=== PATIENT | female | born 1980 | race Caucasian/White ===

== ENCOUNTER 2020-02-07 13:26 | Inpatient (IN) ==
[2020-02-07] MEDS ORDERED: ONDANSETRON INJ 2 MG/ML 2 ML VIAL IV STA (13:49)
[2020-02-07] MEDS ORDERED: HYDROmorphone INJ 0.5 MG/0.5 ML SYR IV STA (13:49)
[2020-02-07] MEDS ORDERED: SODIUM CHLORIDE 0.9% 1000ML 1,000 ML IV ONE (13:49)
--- NOTE | 2020-02-07 13:52 | Emergency Department Note ---
History of Present Illness General Chief complaint: Abdominal Pain Stated complaint: SEVERE ABDOMINAL PAIN Time Seen by Provider: 02/07/20 13:44 Source: patient History of Present Illness Provider complaint: Right-sided abdominal pain Onset (ago): hour(s) Location: abdomen and right Radiation: back Severity: severe Pain Consistency: + constant Quality: + sharp Relieved By: + none Associated symptoms: + nausea/vomiting (Nausea no vomiting); no chest pain, no cough, no fever/chills and no shortness of breath This is a 39-year-old female presents with right-sided abdominal pain starting at 5 AM this morning. It woke her up from sleep. It is sharp. It radiates to the back. No alleviating factors. She is nauseous but not vomiting. She denies any fever, chest pain, shortness of breath, diarrhea, black or bloody stools, urinary symptoms, hematuria or abnormal vaginal discharge or bleeding. She denies any chance of . She has been 4 times in the past. She did eat chicken wings last night. She denies any cough or cold symptoms or known exposure to COVID-19. She does have a prior history of kidney stones years ago but states that that pain was much worse. Home Medications Home Medications Medication Instructions Recorded Confirmed Type ascorbic acid (vitamin C) [Vitamin 1,000 cap PO DAILY 02/07/20 02/07/20 History C] elderberry fruit [Elderberry] 200 mg PO DAILY 02/07/20 02/07/20 History lactobacillus combination no.4 3,000 mmu cells PO DAILY 02/07/20 02/07/20 History [Probiotic] multivitamin 1 cap PO DAILY 02/07/20 02/07/20 History Allergies Allergy/AdvReac Type Severity Reaction Status Date / Time No Known Allergies Allergy Verified 02/07/20 15:47 Past Med/Surg History Medical History (Updated 02/07/20 @ 16:47 by Gregory Rausch MD) Cecal volvulus No significant past medical history Social History Smoking Status: Never smoker marital status: Current Living Situation: Family Feels Safe at Home: Yes Review of Systems See HPI for pertinent positives & negatives. and A total of 10 systems reviewed and were otherwise negative Physical Exam Vital Signs Vital Signs - 24 hr 02/07/20 13:39 02/07/20 13:44 02/07/20 13:48 Temperature 37.3 C Temperature Source Oral Pulse Rate 73 68 78 Pulse Rate [Left Finger] Pulse Rate from SpO2 Sensor Respiratory Rate 16 16 32 H Blood Pressure 128/90 115/94 Blood Pressure [Left Arm] Blood Pressure Mean 96 101 Blood Pressure Mean [Left Arm] Pulse Oximetry 99 Oxygen Delivery Method Room Air Sepsis Recent Fever Within 48 Hours No Sepsis New/Unexplained Change in Mental Status No Sepsis Action Taken by Nursing No Action Required 02/07/20 13:50 02/07/20 14:00 02/07/20 14:03 Temperature Temperature Source Pulse Rate 66 57 L 57 L Pulse Rate [Left Finger] Pulse Rate from SpO2 Sensor 67 58 L 56 L Respiratory Rate 18 20 20 Blood Pressure 125/80 Blood Pressure [Left Arm] Blood Pressure Mean 91 Blood Pressure Mean [Left Arm] Pulse Oximetry 100 100 100 Oxygen Delivery Method Sepsis Recent Fever Within 48 Hours Sepsis New/Unexplained Change in Mental Status Sepsis Action Taken by Nursing 02/07/20 14:04 02/07/20 14:10 02/07/20 14:21 Temperature Temperature Source Pulse Rate 63 Pulse Rate [Left Finger] 56 L Pulse Rate from SpO2 Sensor 63 57 L Respiratory Rate 20 19 Blood Pressure Blood Pressure [Left Arm] 125/80 Blood Pressure Mean Blood Pressure Mean [Left Arm] 95 Pulse Oximetry 96 99 99 Oxygen Delivery Method Sepsis Recent Fever Within 48 Hours Sepsis New/Unexplained Change in Mental Status Sepsis Action Taken by Nursing 02/07/20 14:30 02/07/20 14:47 02/07/20 14:50 Temperature Temperature Source Pulse Rate 78 55 L Pulse Rate [Left Finger] Pulse Rate from SpO2 Sensor 58 L 78 55 L Respiratory Rate 19 14 Blood Pressure 114/72 Blood Pressure [Left Arm] Blood Pressure Mean 79 Blood Pressure Mean [Left Arm] Pulse Oximetry 98 100 99 Oxygen Delivery Method Sepsis Recent Fever Within 48 Hours Sepsis New/Unexplained Change in Mental Status Sepsis Action Taken by Nursing 02/07/20 15:00 02/07/20 15:10 02/07/20 15:20 Temperature Temperature Source Pulse Rate 55 L 55 L 65 Pulse Rate [Left Finger] Pulse Rate from SpO2 Sensor 55 L 55 L 66 Respiratory Rate 10 L 10 L 13 Blood Pressure 105/70 Blood Pressure [Left Arm] Blood Pressure Mean 81 Blood Pressure Mean [Left Arm] Pulse Oximetry 98 98 100 Oxygen Delivery Method Room Air Sepsis Recent Fever Within 48 Hours Sepsis New/Unexplained Change in Mental Status Sepsis Action Taken by Nursing 02/07/20 15:30 02/07/20 15:40 02/07/20 15:50 Temperature Temperature Source Pulse Rate 75 69 63 Pulse Rate [Left Finger] Pulse Rate from SpO2 Sensor 75 71 61 Respiratory Rate 16 17 12 Blood Pressure 118/71 Blood Pressure [Left Arm] Blood Pressure Mean 80 Blood Pressure Mean [Left Arm] Pulse Oximetry 99 100 99 Oxygen Delivery Method Room Air Room Air Room Air Sepsis Recent Fever Within 48 Hours Sepsis New/Unexplained Change in Mental Status Sepsis Action Taken by Nursing 02/07/20 16:00 02/07/20 16:10 02/07/20 16:20 Temperature Temperature Source Pulse Rate 64 69 68 Pulse Rate [Left Finger] Pulse Rate from SpO2 Sensor 64 68 67 Respiratory Rate 14 13 11 L Blood Pressure 121/77 Blood Pressure [Left Arm] Blood Pressure Mean 80 Blood Pressure Mean [Left Arm] Pulse Oximetry 99 99 98 Oxygen Delivery Method Room Air Room Air Room Air Sepsis Recent Fever Within 48 Hours Sepsis New/Unexplained Change in Mental Status Sepsis Action Taken by Nursing 02/07/20 16:30 Temperature Temperature Source Pulse Rate 62 Pulse Rate [Left Finger] Pulse Rate from SpO2 Sensor 62 Respiratory Rate 15 Blood Pressure 99/65 L Blood Pressure [Left Arm] Blood Pressure Mean 73 Blood Pressure Mean [Left Arm] Pulse Oximetry 98 Oxygen Delivery Method Room Air Sepsis Recent Fever Within 48 Hours Sepsis New/Unexplained Change in Mental Status Sepsis Action Taken by Nursing Constitutional: Vital signs reviewed. Eyes: Pupils are equal round reactive to light. Conjunctiva are noninjected. ENT: Pharynx is clear without erythema or exudate. Mucous membranes are moist. Neck supple without meningeal signs. Respiratory: Clear to auscultation bilaterally. Breath sounds are equal bilaterally. Cardiovascular: Regular rate and rhythm. No rubs or gallops. GI: Soft, nondistended with diffuse tenderness localizing in the right upper quadrant. No Jackson sign. Bowel sounds are present. Small umbilical hernia. Musculoskeletal: No peripheral edema. No lower extremity tenderness. Integumentary: No cyanosis. or jaundice. Neurological: The patient is awake and alert. No focal deficits. Psychiatric: Normal affect. Not anxious appearing. Course Administered Medications Discontinued Medications Hydromorphone HCl (Hydromorphone Inj 0.5 Mg/0.5 Ml Syr) 0.5 mg IV NOW STA Stop: 02/07/20 13:50 Last Admin: 02/07/20 13:56 Dose: 0.5 mg Documented by: [id number] Sodium Chloride (Nss 1000ml) 1,000 mls @ 999 mls/hr IV .Q1H1M ONE Stop: 02/07/20 14:49 Last Infusion: 02/07/20 14:36 Dose: 0 mls/hr Documented by: [id number] Admin: 02/07/20 13:55 Dose: 999 mls/hr Documented by: [id number] Ioversol (Ioversol 100ml) 94 ml IV ONCE ONE Stop: 02/07/20 14:42 Last Admin: 02/07/20 14:41 Dose: 94 ml Documented by: [id number] Ondansetron HCl (Ondansetron Inj 2 Mg/Ml 2 Ml Vial) 4 mg IV NOW STA Stop: 02/07/20 13:50 Last Admin: 02/07/20 13:56 Dose: 4 mg Documented by: [id number] Medical Decision Making Differential Diagnosis Kidney stone, hydronephrosis, acute appendicitis, abscess, ovarian cyst, ectopic , cholecystitis Medical Records Attestation: I reviewed the patient's medical records. I did see the patient in November for neck pain. She does have cervical disc disease. Home Medications Current Medication List: was personally reviewed by me Laboratory Data Attestation: I reviewed the patient's lab results. Result diagrams: 02/07/20 12:45 02/07/20 12:45 Lab Results 02/07/20 02/07/20 02/07/20 Range/Units 12:45 12:45 12:45 WBC 9.93 (4.8-10.8) K/uL RBC 4.69 (4.2-5.4) M/uL Hgb 13.8 (12.0-16.0) g/dL Hct 40.3 (37-47) % MCV 85.9 (80-100) fL MCH 29.4 (25-34) pg MCHC 34.2 (32-36) g/dL RDW Std Deviation 40.1 (36.4-46.3) fL RDW Coeff of Stuart 12.8 (11.5-14.5) % Plt Count 221 (130-400) K/uL MPV 10.0 (7.4-10.4) fL Immature Gran % (Auto) 0.1 % Neut % (Auto) 58.4 % Lymph % (Auto) 35.3 % [place] % (Auto) 5.1 % Eos % (Auto) 0.9 % Baso % (Auto) 0.2 % Neut # (Auto) 5.79 (1.4-6.5) K/uL Lymph # (Auto) 3.51 H (1.2-3.4) K/uL [place] # (Auto) 0.51 (0.11-0.59) K/uL Eos # (Auto) 0.09 (0-0.5) K/uL Baso # (Auto) 0.02 (0-0.2) K/uL Immature Gran # (Auto) 0.01 (0.00-0.02) K/uL Sodium 137 (136-145) mmol/L Potassium 4.0 (3.5-5.1) mmol/L Chloride 106 (98-107) mmol/L Carbon Dioxide 26 (21-32) mmol/L Anion Gap 6.0 (3-11) BUN 14 (7-18) mg/dl Creatinine 0.86 (0.6-1.2) mg/dl Est Cr Clr Drug Dosing 95.0 ml/min Est GFR ( Amer) 98.6 Est GFR (Non-Af Amer) 85.1 BUN/Creatinine Ratio 16.1 (10-20) Glucose 97 (70-99) mg/dl Calcium 9.7 (8.5-10.1) mg/dl Total Bilirubin 0.5 (0.2-1) mg/dl AST 13 L (15-37) U/L ALT 19 (12-78) U/L Alkaline Phosphatase 36 L (45-117) U/L Total Protein 7.9 (6.4-8.2) gm/dl Albumin 4.2 (3.4-5.0) gm/dl Globulin 3.7 (2.5-4.0) gm/dl Albumin/Globulin Ratio 1.1 (0.9-2) Lipase 103 (73-393) U/L HCG, Qual Negative (Negative) Urine Color Urine Appearance (Clear) Urine pH (4.5-7.5) Ur Specific Gleason (1.000-1.030) Urine Protein (Negative) Urine Glucose (UA) (Negative) Urine Ketones (Negative) Urine Blood (Negative) Urine Nitrite (Negative) Urine Bilirubin (Negative) Urine Urobilinogen (Negative) Ur Leukocyte Esterase (Negative) Urine WBC (Auto) (0-5) /hpf Urine RBC (Auto) (0-4) /hpf U Hyaline Cast (Auto) (0-5) /lpf U Epithel Cells (Auto) (0-5) /lpf Urine Bacteria (Auto) (Negative) POC Ur Test (NEG) COVID-19 Eval Order SARS-CoV-2, RNA, NAAT (NEGATIVE) 02/07/20 02/07/20 02/07/20 Range/Units 14:20 14:20 15:40 WBC (4.8-10.8) K/uL RBC (4.2-5.4) M/uL Hgb (12.0-16.0) g/dL Hct (37-47) % MCV (80-100) fL MCH (25-34) pg MCHC (32-36) g/dL RDW Std Deviation (36.4-46.3) fL RDW Coeff of Stuart (11.5-14.5) % Plt Count (130-400) K/uL MPV (7.4-10.4) fL Immature Gran % (Auto) % Neut % (Auto) % Lymph % (Auto) % [place] % (Auto) % Eos % (Auto) % Baso % (Auto) % Neut # (Auto) (1.4-6.5) K/uL Lymph # (Auto) (1.2-3.4) K/uL [place] # (Auto) (0.11-0.59) K/uL Eos # (Auto) (0-0.5) K/uL Baso # (Auto) (0-0.2) K/uL Immature Gran # (Auto) (0.00-0.02) K/uL Sodium (136-145) mmol/L Potassium (3.5-5.1) mmol/L Chloride (98-107) mmol/L Carbon Dioxide (21-32) mmol/L Anion Gap (3-11) BUN (7-18) mg/dl Creatinine (0.6-1.2) mg/dl Est Cr Clr Drug Dosing ml/min Est GFR ( Amer) Est GFR (Non-Af Amer) BUN/Creatinine Ratio (10-20) Glucose (70-99) mg/dl Calcium (8.5-10.1) mg/dl Total Bilirubin (0.2-1) mg/dl AST (15-37) U/L ALT (12-78) U/L Alkaline Phosphatase (45-117) U/L Total Protein (6.4-8.2) gm/dl Albumin (3.4-5.0) gm/dl Globulin (2.5-4.0) gm/dl Albumin/Globulin Ratio (0.9-2) Lipase (73-393) U/L HCG, Qual (Negative) Urine Color Yellow Urine Appearance Clear (Clear) Urine pH 5.0 (4.5-7.5) Ur Specific Gleason 1.017 (1.000-1.030) Urine Protein Negative (Negative) Urine Glucose (UA) Negative (Negative) Urine Ketones Negative (Negative) Urine Blood Trace H (Negative) Urine Nitrite Negative (Negative) Urine Bilirubin Negative (Negative) Urine Urobilinogen Negative (Negative) Ur Leukocyte Esterase Trace H (Negative) Urine WBC (Auto) 1-5 (0-5) /hpf Urine RBC (Auto) 0-4 (0-4) /hpf U Hyaline Cast (Auto) 0 (0-5) /lpf U Epithel Cells (Auto) 10-20 H (0-5) /lpf Urine Bacteria (Auto) Negative (Negative) POC Ur Test NEG (NEG) COVID-19 Eval Order Covid19 IDNow atMNDC SARS-CoV-2, RNA, NAAT (NEGATIVE) 02/07/20 Range/Units 15:40 WBC (4.8-10.8) K/uL RBC (4.2-5.4) M/uL Hgb (12.0-16.0) g/dL Hct (37-47) % MCV (80-100) fL MCH (25-34) pg MCHC (32-36) g/dL RDW Std Deviation (36.4-46.3) fL RDW Coeff of Stuart (11.5-14.5) % Plt Count (130-400) K/uL MPV (7.4-10.4) fL Immature Gran % (Auto) % Neut % (Auto) % Lymph % (Auto) % [place] % (Auto) % Eos % (Auto) % Baso % (Auto) % Neut # (Auto) (1.4-6.5) K/uL Lymph # (Auto) (1.2-3.4) K/uL [place] # (Auto) (0.11-0.59) K/uL Eos # (Auto) (0-0.5) K/uL Baso # (Auto) (0-0.2) K/uL Immature Gran # (Auto) (0.00-0.02) K/uL Sodium (136-145) mmol/L Potassium (3.5-5.1) mmol/L Chloride (98-107) mmol/L Carbon Dioxide (21-32) mmol/L Anion Gap (3-11) BUN (7-18) mg/dl Creatinine (0.6-1.2) mg/dl Est Cr Clr Drug Dosing ml/min Est GFR ( Amer) Est GFR (Non-Af Amer) BUN/Creatinine Ratio (10-20) Glucose (70-99) mg/dl Calcium (8.5-10.1) mg/dl Total Bilirubin (0.2-1) mg/dl AST (15-37) U/L ALT (12-78) U/L Alkaline Phosphatase (45-117) U/L Total Protein (6.4-8.2) gm/dl Albumin (3.4-5.0) gm/dl Globulin (2.5-4.0) gm/dl Albumin/Globulin Ratio (0.9-2) Lipase (73-393) U/L HCG, Qual (Negative) Urine Color Urine Appearance (Clear) Urine pH (4.5-7.5) Ur Specific Gleason (1.000-1.030) Urine Protein (Negative) Urine Glucose (UA) (Negative) Urine Ketones (Negative) Urine Blood (Negative) Urine Nitrite (Negative) Urine Bilirubin (Negative) Urine Urobilinogen (Negative) Ur Leukocyte Esterase (Negative) Urine WBC (Auto) (0-5) /hpf Urine RBC (Auto) (0-4) /hpf U Hyaline Cast (Auto) (0-5) /lpf U Epithel Cells (Auto) (0-5) /lpf Urine Bacteria (Auto) (Negative) POC Ur Test (NEG) COVID-19 Eval Order SARS-CoV-2, RNA, NAAT NEGATIVE (NEGATIVE) Imaging Data Radiologist's Impression: ABDOMEN AND PELVIS CT WITH IV CONTRAST CT DOSE: 302.04 mGy.cm HISTORY: Right lower quadrant pain. TECHNIQUE: Multiaxial CT images of the abdomen and pelvis were performed following the use of intravenous contrast. A dose lowering technique was utilized adhering to the principles of ALARA. COMPARISON STUDY: None. FINDINGS: The lung bases are clear. No pneumoperitoneum. No pneumatosis. No fractures within the visualized osseous structures. Bilateral breast augmentation is partially visualized. Tiny fat-containing umbilical hernia. There is a 1.4 cm hypodense lesion within the left hepatic lobe. This is technically indeterminate but favors a hemangioma. Mild periportal edema which could be due to overhydration. The gallbladder, spleen, pancreas, and adrenal glands unremarkable. There are punctate bilateral renal calculi. No ureteral stones. No hydronephrosis. The bladder is not well-distended and therefore not well evaluated. The uterus and ovaries are within normal limits. Thick-walled cyst within the left ovary measuring 1.5 cm. This favors a corpus luteum. Trace pelvic free fluid. This is likely physiologic. There are no dilated loops of small bowel. The cecum is located within the left upper quadrant. The cecum is distended and there is tight narrowing of the proximal ascending colon as it traverses the midline of the right lower quadrant. Therefore, this raises the possibility of a developing cecal volvulus. Clinical correlation recommended as well as surgical consultation. The appendix is identified with certainty. No retroperitoneal lymphadenopathy. Normal caliber abdominal aorta. The main portal vein is patent. IMPRESSION: 1. The proximal ascending colon is severely narrowed and crosses the midline with the cecum located within the left upper quadrant. The cecum is distended and filled with fluid and gas. Therefore, these findings raise the possibility of a developing cecal volvulus. Clinical correlation and surgical consultation recommended for further evaluation. 2. The appendix is not identified with certainty. 3. Bilateral nephrolithiasis. No ureteral stones. No hydronephrosis. ACT 112: Negative or not required by law. MDM Narrative I did evaluate the patient as noted above. The patient is presenting with severe acute onset of right sided abdominal pain rating to her back. She does have a prior history of kidney stones but stated that that felt much worse. On examination, however, she is tender diffusely with localization in the right upper quadrant. IV access was established. I did place an order for continuous cardiac monitoring. The monitor showed normal sinus rhythm at a rate of 60 bpm. I did treat her with Dilaudid 0.5 mg IV and Zofran 4 mg IV. She was given a liter of normal saline IV. I did reevaluate the patient. She is feeling better but still in pain. I did reexamine her abdomen and now she is localizing in the right lower quadrant over McBurney point. Originally I discussed ordering an ultrasound but I told her instead we would do a CAT scan to rule out appendicitis. I did order a urine analysis. She has hematuria but no signs of infection. I did order and review the patient's blood work as noted in the electronic medical record. Her white blood cell count is not elevated. LFTs, electrolytes and lipase are unremarkable. Serum test is negative. I did order a CT of the abdomen and pelvis. I did review the images myself as well as the radiology report as described above. 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 On reevaluation patient is still having pain and tenderness but she does feel better. She does states it comes in waves. I did discuss the case immediately with Dr. Infante of surgery. He requested that she be admitted to medicine and GI be consulted for endoscopic decompression. I did speak to Dr. Whit Sagastume of gastroenterology regarding this. He stated that endoscopy was not indicated for cecal volvulus. I did call Dr. Humphries back who came in to see the patient and took her to the OR for surgical repair. I did order a preoperative COVID-19 test. Impression & Plan Cecal volvulus Discharge Plan Visit Data Chief Complaint: Abdominal Pain Stated Complaint: SEVERE ABDOMINAL PAIN ED Provider: Gregory Rausch Discharge Problem: Cecal volvulus Patient Disposition: Being Evaluated by Surgeon Forms Stand Alone Forms: My [facility] [employer] Prescriptions Prescriptions: No Action multivitamin Capsule 1 cap PO DAILY RF: 0 Vitamin C 1,000 mg Capsule, Extended Release 1,000 cap PO DAILY RF: 0 Elderberry 200 mg Capsule 200 mg PO DAILY RF: 0 Probiotic 3 billion cell Capsule 3,000 mmu cells PO DAILY RF: 0 Referrals Referrals: Vasile Gomez MD [Primary Care Provider] -
[2020-02-07 13:57] LABS: Basophils # (auto) 0.02 K/uL (0-0.2); Basophils % (auto) 0.2 %; Eosinophils # (auto) 0.09 K/uL (0-0.5); Eosinophils % (auto) 0.9 %; Hematocrit (blood only) 40.3 % (37-47); Hemoglobin 13.8 g/dL (12.0-16.0); Immature Granulocytes # (auto) 0.01 K/uL (0.00-0.02); Immature Granulocytes % (auto) 0.1 %; Lymphocytes # (auto) 3.51 K/uL (1.2-3.4); Lymphocytes % (auto) 35.3 %; Mean Corpuscular Hemoglobin 29.4 pg (25-34); Mean Corpuscular Hgb Conc 34.2 g/dL (32-36); Mean Corpuscular Volume 85.9 fL (80-100); Monocytes # (auto) 0.51 K/uL (0.11-0.59); Monocytes % (auto) 5.1 %; Neutrophils # (auto) 5.79 K/uL (1.4-6.5); Neutrophils % (auto) 58.4 %; Platelet Count 221 K/uL (130-400); RDW Coefficient of Variation 12.8 % (11.5-14.5); RDW Standard Deviation 40.1 fL (36.4-46.3); Red Blood Count 4.69 M/uL (4.2-5.4); White Blood Count 9.93 K/uL (4.8-10.8)
[2020-02-07 14:14] LABS: Albumin Level 4.2 gm/dl (3.4-5.0); BUN Creatinine Ratio 16.1 (10-20); Calcium 9.7 mg/dl (8.5-10.1); Est GFR (African American) 98.6; Est GFR (Non-African American) 85.1
[2020-02-07 14:16] LABS: Albumin Globulin Ratio 1.1 (0.9-2); Bilirubin,Total 0.5 mg/dl (0.2-1); Globulin 3.7 gm/dl (2.5-4.0); Total Protein 7.9 gm/dl (6.4-8.2)
[2020-02-07 14:19] LABS: Pregnancy Test, Serum Negative (Negative)
[2020-02-07 14:35] LABS: Appearance Urine Clear (Clear); Bacteria Urine Automated Negative (Negative); Bilirubin Urine Negative (Negative); Blood Urine Trace (Negative); Cast Urine Automated 0 /lpf (0-5); Color Urine Yellow; Glucose Urine UA Negative (Negative); Ketones Urine Negative (Negative); Leukocyte Esterase Urine Trace (Negative); Nitrite Urine Negative (Negative); Protein Urine Negative (Negative); RBC Urine Automated 0-4 /hpf (0-4); Specific Gravity Urine 1.017 (1.000-1.030); Urobilinogen Urine Negative (Negative)
[2020-02-07] MEDS ORDERED: IOVERSOL 100ml IV ONE (14:41)
--- NOTE | 2020-02-07 15:04 | CT Scan Report ---
ABDOMEN AND PELVIS CT WITH IV CONTRAST CT DOSE: 302.04 mGy.cm HISTORY: Right lower quadrant pain. TECHNIQUE: Multiaxial CT images of the abdomen and pelvis were performed following the use of intrave nous contrast. A dose lowering technique was utilized adhering to the principles of ALARA. COMPARISON STUDY: None. FINDINGS: The lung bases are clear. No pneumoperitoneum. No pneumatosis. No fractures within the visu alized osseous structures. Bilateral breast augmentation is partially visualized. Tiny fat-containing umbilical hernia. There is a 1.4 cm hypodense lesion within the left hepatic lobe. This is technical ly indeterminate but favors a hemangioma. Mild periportal edema which could be due to overhydration. The gallbladder, spleen, pancreas, and adrenal glands unremarkable. There are punctate bilateral greg l calculi. No ureteral stones. No hydronephrosis. The bladder is not well-distended and therefore not well evaluated. The uterus and ovaries are within normal limits. Thick-walled cyst within the left o vary measuring 1.5 cm. This favors a corpus luteum. Trace pelvic free fluid. This is likely physiolog ic. There are no dilated loops of small bowel. The cecum is located within the left upper quadrant. T he cecum is distended and there is tight narrowing of the proximal ascending colon as it traverses th e midline of the right lower quadrant. Therefore, this raises the possibility of a developing cecal v olvulus. Clinical correlation recommended as well as surgical consultation. The appendix is identifie d with certainty. No retroperitoneal lymphadenopathy. Normal caliber abdominal aorta. The main portal vein is patent. IMPRESSION: 1. The proximal ascending colon is severely narrowed and crosses the midline with the cecum located w ithin the left upper quadrant. The cecum is distended and filled with fluid and gas. Therefore, these findings raise the possibility of a developing cecal volvulus. Clinical correlation and surgical con sultation recommended for further evaluation. 2. The appendix is not identified with certainty. 3. Bilateral nephrolithiasis. No ureteral stones. No hydronephrosis. ACT 112: Negative or not required by law. Electronically signed by: Kevin Day M.D. 02/07/2020 3:03 PM
--- NOTE | 2020-02-07 16:15 | History & Physical Report ---
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 It woke her up from sleep. It is sharp. It radiates to the back. No alleviating factors. She is nauseous but not vomiting. She denies any fever, chest pain, shortness of breath, diarrhea, black or bloody stools, urinary symptoms, hematuria or abnormal vaginal discharge or bleeding. She denies any chance of . She denies any cough or cold symptoms or known exposure to COVID-19. She does have a prior history of kidney stones years ago but states that that pain was much worse. A CT scan shows a cecal volvulous without any signs of ischemia. PSHx- open right inguinal hernia repair PMHx- none Allergies Allergy/AdvReac Type Severity Reaction Status Date / Time No Known Allergies Allergy Verified 02/07/20 15:47 Home Medications Home Medications Medication Instructions Recorded Confirmed Type ascorbic acid (vitamin C) [Vitamin 1,000 cap PO DAILY 02/07/20 02/07/20 History C] elderberry fruit [Elderberry] 200 mg PO DAILY 02/07/20 02/07/20 History lactobacillus combination no.4 3,000 mmu cells PO DAILY 02/07/20 02/07/20 History [Probiotic] multivitamin 1 cap PO DAILY 02/07/20 02/07/20 History Past Med/Surg History Medical History No significant past medical history Social History Smoking Status: Never smoker marital status: Current Living Situation: Family Feels Safe at Home: Yes Review of Systems + anorexia; no fever and no chills no problem reported no problem reported no cough, no chest congestion and no dyspnea no chest pain and no chest pain at rest + abdominal pain and + nausea; no vomiting, no change in bowel habits, no change in stools, no constipation and no diarrhea/loose stools no dysuria and no urinary hesitancy no back pain and no neck pain no rash and no change in skin color no localized weakness and no generalized weakness no behavioral changes no fatigue, no polyphagia and no polyuria no easy bleeding and no easy bruising Physical Exam Constitutional: well developed and well nourished; not ill appearing Eyes: PERRL, conjunctivae normal, anicteric sclerae ENMT: external ear and nose normal, oropharynx normal Neck: trachea midline Respiratory: normal respiratory effort, lungs clear to auscultation Cardiovascular: RRR, no murmur, no edema Gastrointestinal (Abdomen): Inspection/Auscultation: abdomen normal to inspection, + abdomen distended and + visible herniation (small umbilical hernia); + abnormal bowel sounds and no abdominal surgical scar Percussion/Palpation: + abdomen tender and + guarding ASA Classification ASA ASA1E Results & Data ([facility]) Vital Signs (Past 12 Hours) Vital Signs Temp Pulse Pulse Resp BP BP Pulse Ox 02/07/20 15:10 55 L 10 L 98 02/07/20 15:00 55 L 10 L 105/70 98 02/07/20 14:50 55 L 14 99 02/07/20 14:47 78 19 100 02/07/20 14:30 114/72 98 02/07/20 14:21 99 02/07/20 14:10 63 19 99 02/07/20 14:04 56 L 20 125/80 96 02/07/20 14:03 57 L 20 125/80 100 02/07/20 14:00 57 L 20 100 02/07/20 13:50 66 18 100 02/07/20 13:48 37.3 C 78 32 H 115/94 99 02/07/20 13:44 68 16 02/07/20 13:39 73 16 128/90 Diagnostic Findings ABDOMEN AND PELVIS CT WITH IV CONTRAST CT DOSE: 302.04 mGy.cm HISTORY: Right lower quadrant pain. TECHNIQUE: Multiaxial CT images of the abdomen and pelvis were performed following the use of intravenous contrast. A dose lowering technique was utilized adhering to the principles of ALARA. COMPARISON STUDY: None. FINDINGS: The lung bases are clear. No pneumoperitoneum. No pneumatosis. No fractures within the visualized osseous structures. Bilateral breast augmentation is partially visualized. Tiny fat-containing umbilical hernia. There is a 1.4 cm hypodense lesion within the left hepatic lobe. This is technically indeterminate but favors a hemangioma. Mild periportal edema which could be due to overhydration. The gallbladder, spleen, pancreas, and adrenal glands unremarkable. There are punctate bilateral renal calculi. No ureteral stones. No hydronephrosis. The bladder is not well-distended and therefore not well evaluated. The uterus and ovaries are within normal limits. Thick-walled cyst within the left ovary measuring 1.5 cm. This favors a corpus luteum. Trace pelvic free fluid. This is likely physiologic. There are no dilated loops of small bowel. The cecum is located within the left upper quadrant. The cecum is distended and there is tight narrowing of the proximal ascending colon as it traverses the midline of the right lower quadrant. Therefore, this raises the possibility of a developing cecal volvulus. Clinical correlation recommended as well as surgical consultation. The appendix is identified with certainty. No retroperitoneal lymphadenopathy. Normal caliber abdominal aorta. The main portal vein is patent. IMPRESSION: 1. The proximal ascending colon is severely narrowed and crosses the midline with the cecum located within the left upper quadrant. The cecum is distended and filled with fluid and gas. Therefore, these findings raise the possibility of a developing cecal volvulus. Clinical correlation and surgical consultation recommended for further evaluation. 2. The appendix is not identified with certainty. 3. Bilateral nephrolithiasis. No ureteral stones. No hydronephrosis. Code Status & VTE Plan Code Status Full Code VTE Prophylaxis Plan VTE Prophylaxis will be ordered: Yes
[2020-02-07] MEDS ORDERED: MoRPHine SULFATE 10 MG/ML CARP/VIAL IV PRN (16:18)
[2020-02-07] MEDS ORDERED: ONDANSETRON INJ 2 MG/ML 2 ML VIAL IV PRN (16:18)
[2020-02-07] MEDS ORDERED: PROMETHAZINE HCL 25 MG in SODIUM CHLORIDE 0.9% 50 ML IV PRN (16:18)
[2020-02-07] MEDS ORDERED: ACETAMINOPHEN 1,000 MG/100 ML VIAL IV PRN (16:18)
[2020-02-07] MEDS ORDERED: oxyCODONE/ACETAMINOPHEN 5mg/325mg TAB PO PRN ×2 (16:18)
[2020-02-07] MEDS ORDERED: MoRPHine SULFATE 2 MG/ML CARP IV PRN (16:18)
[2020-02-07] MEDS ORDERED: PIPERACILLIN/TAZOBACTAM 4.5 GM/120 ML BAG IV STA (16:31)
[2020-02-07] MEDS ORDERED: PIPERACILL/TAZOBAC CONSULT ACTIVE PRN (16:33)
[2020-02-07] MEDS ORDERED: PROPOFOL IV EMULSION 10 MG/ML 20 ML VIAL IV ONE (16:45)
[2020-02-07] MEDS ORDERED: fentaNYL citrate 100 MCG/2 ML VIAL ONE ×3 (16:45→19:30)
[2020-02-07] MEDS ORDERED: ROCURONIUM BROMIDE 10 MG/ML 5 ML VIAL IV ONE (16:45)
[2020-02-07] MEDS ORDERED: MIDAZOLAM HCL 1 MG/ML 2ML VIAL ONE (16:45)
[2020-02-07] MEDS ORDERED: SUCCINYLCHOLINE 100MG/5ML SYR IV ONE (16:45)
--- NOTE | 2020-02-07 17:23 | Anesthesiology Consultation ---
Date of Service February 07, 2020 Assessment & Plan ASA ASA1E Proposed Anesthesia Anesthesia Type: General Risk / Benefits Reviewed With: PT / POA / Parent / Guardian, Accepts Plan and Informed Consent Obtained History Surgery Operation Date: 02/07/20 17:00 Proposed Procedures p Sigmoid Colon Resection - Dean Infante MD Height/Weight Height: 5 ft 10 in Weight: 68.6 kg Allergies Allergy/AdvReac Type Severity Reaction Status Date / Time No Known Allergies Allergy Verified 02/07/20 15:47 Medications Home Medications Medication Instructions Recorded Confirmed Last Taken ascorbic acid (vitamin C) [Vitamin 1,000 cap PO DAILY 02/07/20 02/07/20 Unknown C] elderberry fruit [Elderberry] 200 mg PO DAILY 02/07/20 02/07/20 Unknown lactobacillus combination no.4 3,000 mmu cells PO DAILY 02/07/20 02/07/20 Unknown [Probiotic] multivitamin 1 cap PO DAILY 02/07/20 02/07/20 Unknown NPO Date Last Intake of Fluids: 02/07/20 Time Last Intake of Fluids: 12:00 Last Intake of Fluids Comment: water Date Last Intake of Solids: 02/06/20 Time Last Intake of Solids: 21:00 Past Medical History Medical History Cecal volvulus No significant past medical history Exercise / Class Metabolic Activity II 4-5 Yardwork/Stairs/Walk up hill Past Anesthesia History No Hx of Anesthesia Complications and No Family Hx of Anesthesia Complications History of PONV No Hx of PONV and No Hx of Motion Sickness Social History Smoking Status: Never smoker Review of Systems denies fever/cough/ colds/ chest pain/ SOB/ MOO denies MOO Physical Exam Vital Signs Last Vital Signs Temp 37.3 C 02/07/20 13:48 Pulse 69 02/07/20 16:56 Resp 18 02/07/20 16:56 BP 96/57 L 02/07/20 16:56 Pulse Ox 98 02/07/20 16:56 ENMT Mouth: no TMJ abnormality and no dentition abnormality Thyromental Distance: > or= 3.5 Finger Breadths Mallampati Class: II Neck neck extension not limited Respiratory normal respiratory effort; no respiratory distress Auscultation: lungs clear to auscultation bilaterally Cardiovascular Rate/Rhythm: regular rate and regular rhythm Neurologic moves all extremities Psychiatric Orientation: alert and oriented x 3 Testing Laboratory Results 02/07/20 12:45 02/07/20 12:45 Urine Color Yellow 02/07/20 14:20 Urine Appearance Clear (Clear) 02/07/20 14:20 Urine pH 5.0 (4.5-7.5) 02/07/20 14:20 Ur Specific [place] 1.017 (1.000-1.030) 02/07/20 14:20 Urine Protein Negative (Negative) 02/07/20 14:20 Urine Glucose (UA) Negative (Negative) 02/07/20 14:20 Urine Ketones Negative (Negative) 02/07/20 14:20 Urine Nitrite Negative (Negative) 02/07/20 14:20 Ur Leukocyte Esterase Trace (Negative) H 02/07/20 14:20 Urine WBC (Auto) 1-5 /hpf (0-5) 02/07/20 14:20 Urine RBC (Auto) 0-4 /hpf (0-4) 02/07/20 14:20 U Hyaline Cast (Auto) 0 /lpf (0-5) 02/07/20 14:20 U Epithel Cells (Auto) 10-20 /lpf (0-5) H 02/07/20 14:20 Urine Bacteria (Auto) Negative (Negative) 02/07/20 14:20 02/07/20 14:20 POC Ur Test NEG
[2020-02-07] MEDS ORDERED: ePHEDrine sulfate 50 MG/ML AMP IV PRN (17:25)
[2020-02-07] MEDS ORDERED: ATROPINE SULFATE 0.1 MG/ML 10ML SYR IV PRN (17:25)
[2020-02-07] MEDS ORDERED: HYDROmorphone INJ 2 MG/ML SYR/VIAL IV PRN (17:25)
[2020-02-07] MEDS ORDERED: BUPIVACAINE 0.5 % 5 MG/1 ML MPF 30ML VIAL ONE (17:46)
[2020-02-07] MEDS ORDERED: EPINEPHrine INJ 1 MG/ML AMP ONE (17:46)
[2020-02-07] MEDS ORDERED: HYDROmorphone INJ 2 MG/ML SYR/VIAL ONE (17:53)
[2020-02-07] MEDS ORDERED: DEXAMETHASONE SOD INJ 4 MG/ML VIAL ONE (17:59)
[2020-02-07] MEDS ORDERED: NEOSTIGMINE METHYLSULFATE 5 MG/5 ML SYR ONE (17:59)
[2020-02-07] MEDS ORDERED: GLYCOPYRROLATE 0.2 MG/ML VIAL ONE (17:59)
--- NOTE | 2020-02-07 18:57 | Post Operative Brief Note ---
Immediate Post Op Note v1 Date of Surgery February 07, 2020 Pre & Post Diagnosis Operation Date: 02/07/20 17:00 Pre-Op Diagnosis: Cecal volvulus Post-Op Diagnosis: Cecal volvulus I identified the patient and participated in the time-out.: Yes Procedure Operation Date: 02/07/20 17:00 Actual Procedures p Cecectomy - Dean Infante MD Surgeon Dean Infante MD Motorized [employer] Captain none Estimated Blood Loss 50 Findings Consistent with Post-Op Diagnosis Drains Martinez Catheter
[2020-02-07] MEDS: fentaNYL citrate 100 MCG/2 ML VIAL IV PRN ×2 (19:34→19:39)
--- NOTE | 2020-02-07 19:34 | Anesthesiology Progress Note ---
Date of Service February 07, 2020 Anesthesia Post Procedure Vital Signs Vital Signs: Temp Pulse Pulse Pulse Resp BP BP 02/07/20 19:20 73 14 121/81 02/07/20 19:13 36.7 C 78 18 117/87 02/07/20 16:56 69 18 96/57 L 02/07/20 16:30 62 15 99/65 L 02/07/20 16:20 68 11 L 02/07/20 16:10 69 13 02/07/20 16:00 64 14 121/77 02/07/20 15:50 63 12 02/07/20 15:40 69 17 02/07/20 15:30 75 16 118/71 02/07/20 15:20 65 13 02/07/20 15:10 55 L 10 L 02/07/20 15:00 55 L 10 L 105/70 02/07/20 14:50 55 L 14 02/07/20 14:47 78 19 02/07/20 14:30 114/72 02/07/20 14:21 02/07/20 14:10 63 19 02/07/20 14:04 56 L 20 125/80 02/07/20 14:03 57 L 20 125/80 02/07/20 14:00 57 L 20 02/07/20 13:50 66 18 02/07/20 13:48 37.3 C 78 32 H 115/94 02/07/20 13:44 68 16 02/07/20 13:39 73 16 128/90 Pulse Ox 02/07/20 19:20 100 02/07/20 19:13 97 02/07/20 16:56 98 02/07/20 16:30 98 02/07/20 16:20 98 02/07/20 16:10 99 02/07/20 16:00 99 02/07/20 15:50 99 02/07/20 15:40 100 02/07/20 15:30 99 02/07/20 15:20 100 02/07/20 15:10 98 02/07/20 15:00 98 02/07/20 14:50 99 02/07/20 14:47 100 02/07/20 14:30 98 02/07/20 14:21 99 02/07/20 14:10 99 02/07/20 14:04 96 02/07/20 14:03 100 02/07/20 14:00 100 02/07/20 13:50 100 02/07/20 13:48 99 02/07/20 13:44 02/07/20 13:39 Pain Intensity Right Flank: Pain Intensity: 7 Transfer of Care Handoff Completed per policy Notes Mental Status: alert / awake / arousable and participated in evaluation Patient Amnestic to Procedure: Yes Nausea / Vomiting: adequately controlled Pain: adequately controlled Airway Patency, RR, SpO2: stable & adequate BP & HR: stable & adequate Hydration State: stable & adequate Anesthetic Complications: no major complications apparent and Pt Satisfied with anesthetic care
--- NOTE | 2020-02-07 19:38 | Operative Report (OR) ---
DATE OF OPERATION: 02/07/2020 PREOPERATIVE DIAGNOSIS: Cecal volvulus. POSTOPERATIVE DIAGNOSIS: Cecal volvulus. PROCEDURE PERFORMED: Open limited right colon resection. SURGEON: Dean Infante MD. SENIOR USER EXPERIENCE ARCHITECT: None. ANESTHESIA: General endotracheal with 0.5% Marcaine with epinephrine local, 22 mL. ESTIMATED BLOOD LOSS: 50 mL. SPECIMENS: Cecum and terminal ileum along with anastomosis. DRAINS: None. COMPLICATIONS: None. INDICATION FOR PROCEDURE: This is a 39-year-old female who came in to the Emergency Department complaining of severe abdominal pain, underwent a full workup with CT scan showing a likely cecal volvulus. On exam, she had peritoneal signs without signs of ischemia by lab or CT. We talked to her in detail and recommended a right colon resection. We went over the risks in detail with her. DESCRIPTION OF PROCEDURE: The patient was taken to the OR and underwent excellent general endotracheal anesthesia. Abdomen was prepped and draped in normal sterile fashion. A midline incision was made from above the umbilicus to just below. She had an umbilical hernia, which we will close at the end of the procedure. The peritoneal cavity was entered sharply. Upon entering the cavity, transverse colon was pulled out. Small bowel was retracted using Rich retractors. A cecal volvulus was evident and the cecum was very redundant and easily moved back and forth; therefore, it was elected to do a limited right colon resection so this would not happen again. Using cautery, the peritoneal reflection was taken down superiorly to free up the cecum. This was extended to just below the hepatic flexure. Once this was done, a large noninflamed appendix was also identified. A section of the terminal ileum was identified once the entire colon was mobilized. Using a ZENAIDA stapler, the terminal ileum was transected. A spot in the proximal ascending colon was then also identified and this was transected with a ZENAIDA stapler. Once this was done, a Jahaira clamp was used to take down the mesentery securing this with 0 silk ties. The specimen was delivered leaving the proximal right colon and a portion of the terminal ileum. These were approximated and a stay suture was placed proximally. An enterotomy and a colotomy were made and a ZENAIDA stapler was used to create a [id number] stapled anastomosis. Once this was done, 2 stay sutures were placed on either side of the defect, which was created. There was no spillage of fecal material. This was irrigated out and suctioned to clear. Once the stay sutures were placed, Allis clamps were used to place on the defect and a ZENAIDA stapler was used to transect and create the anastomosis. The anastomosis was also sent for pathologic evaluation. Interrupted silk sutures were then used to reinforce the staple line. The defect was closed with a running 3-0 Vicryl suture. There was a good anastomosis created. The small bowel was then run from the terminal ileum to the ligament of Treitz. There were no other abnormalities noted. The abdomen was then irrigated out with 2 liters of warm saline. Once this was done, Kelli clamps were placed on either side of the fascia with tension here. The hernia sac was removed where proximal fascia could be seen around the umbilical hernia. A running PDS suture was used to close the incision from the superior and inferior ends, these were taken in short bites and just the fascia was used. Once the defect was closed, 0.5% Marcaine with epinephrine local was used to create a local field block. The wound was then irrigated and closed with nunu. A sterile dressing was applied. She tolerated the procedure well with no complications. Her bladder was noted to be extremely distended during the procedure. Therefore, a Martinez was placed postop. She was then extubated and sent to postop recovery area for a period of observation and will be sent to the floor for the rest of her care. I attest to the content of the Intraoperative Record and any orders documented therein. Any exceptions are noted below. STEFANY
[2020-02-07] MEDS ORDERED: ONDANSETRON INJ 2 MG/ML 2 ML VIAL ONE (19:42)
[2020-02-07] MEDS: LACTATED RINGER'S 1,000 ML IV SCH (20:41)
[2020-02-07] MEDS: PIPERACILLIN/TAZOBACTAM 3.375 GM in DEXTROSE 5% 100 ML IV SCH (22:40)
[2020-02-08] MEDS: LACTATED RINGER'S 1,000 ML IV SCH ×3 (01:54→18:19)
[2020-02-08] MEDS: MoRPHine SULFATE 4 MG/ML 1 ML CARP\\VIAL IV PRN ×4 (01:59→14:52)
[2020-02-08] MEDS: PIPERACILLIN/TAZOBACTAM 3.375 GM in DEXTROSE 5% 100 ML IV SCH ×3 (05:39→21:55)
[2020-02-08] MEDS: PANTOprazole 40 MG in SYRINGE 0 ML IV SCH (11:18)
--- NOTE | 2020-02-08 14:43 | Surgery Progress Note ---
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 POD 1 doing fine, OOB continue iv antibiotic, repeta labs in am, will F/U prevent DVT Admission and Anticipated Discharge Date Admission Date: February 07, 2020 Review of Systems Constitutional: + anorexia; no fever and no chills Gastrointestinal: + abdominal pain and + nausea; no vomiting, no change in bowel habits, no change in stools, no constipation and no diarrhea/loose stools Physical Exam Constitutional: WD/WN, vitals as above well developed and well nourished Eyes: PERRL, conjunctivae normal, anicteric sclerae ENMT: external ear and nose normal, oropharynx normal Neck: trachea midline, no thyromegaly Respiratory: normal respiratory effort, lungs clear to auscultation Cardiovascular: RRR, no murmur, no edema Gastrointestinal (Abdomen): Percussion/Palpation: abdomen soft mild tenderness at incision site, no distend, BS -, incision intact, no redness, Musculoskeletal: no cyanosis or clubbing, extremities motor strength 5/5 Skin: no rashes, warm and dry Neurologic: patellar DTR's 2+ bilat, sensation intact Psychiatric: A+Ox3, euthymic affect Orientation: alert and oriented x 3 Results & Data ([facility]) Vital Signs (Past 12 Hours) Vital Signs Temp Pulse Resp BP Pulse Ox 02/08/20 11:03 37.1 C 83 16 103/67 96 02/08/20 09:28 97 02/08/20 07:08 37.1 C 65 16 111/71 100 02/08/20 03:35 37.3 C 66 16 109/70 100
[2020-02-08] MEDS: KETOROLAC TROMETHAMINE 15 MG/ML VIAL IV PRN (18:21)
[2020-02-08] MEDS ORDERED: BENZOCAINE 20% (ORAJEL) 11.9 GM TUBE MT PRN (18:51)
[2020-02-09] MEDS: LACTATED RINGER'S 1,000 ML IV SCH ×2 (01:22→09:25)
[2020-02-09] MEDS: KETOROLAC TROMETHAMINE 15 MG/ML VIAL IV PRN ×2 (01:29→14:22)
[2020-02-09] MEDS: PIPERACILLIN/TAZOBACTAM 3.375 GM in DEXTROSE 5% 100 ML IV SCH ×3 (06:28→21:41)
[2020-02-09 07:22] LABS: Basophils # (auto) 0.01 K/uL (0-0.2); Basophils % (auto) 0.1 %; Eosinophils # (auto) 0.06 K/uL (0-0.5); Eosinophils % (auto) 0.8 %; Hematocrit (blood only) 28.8 % (37-47); Hemoglobin 9.7 g/dL (12.0-16.0); Immature Granulocytes # (auto) 0.01 K/uL (0.00-0.02); Immature Granulocytes % (auto) 0.1 %; Lymphocytes # (auto) 2.22 K/uL (1.2-3.4); Lymphocytes % (auto) 27.8 %; Mean Corpuscular Hgb Conc 33.7 g/dL (32-36); Mean Corpuscular Volume 86.2 fL (80-100); Mean Platelet Volume 9.8 fL (7.4-10.4); Monocytes # (auto) 0.62 K/uL (0.11-0.59); Monocytes % (auto) 7.8 %; Neutrophils # (auto) 5.07 K/uL (1.4-6.5); Neutrophils % (auto) 63.4 %; Platelet Count 170 K/uL (130-400); RDW Coefficient of Variation 12.9 % (11.5-14.5); RDW Standard Deviation 40.8 fL (36.4-46.3); Red Blood Count 3.34 M/uL (4.2-5.4); White Blood Count 7.99 K/uL (4.8-10.8)
[2020-02-09 07:46] LABS: Albumin Level 2.8 gm/dl (3.4-5.0); BUN Creatinine Ratio 15.7 (10-20); Bilirubin,Total 0.7 mg/dl (0.2-1); Calcium 8.1 mg/dl (8.5-10.1); Creatinine Clr Calc Pharmacy 110.4 ml/min; Est GFR (African American) 118.3; Est GFR (Non-African American) 102.1; Globulin 2.8 gm/dl (2.5-4.0); Total Protein 5.6 gm/dl (6.4-8.2)
[2020-02-09] MEDS: ENOXAPARIN INJ 40 MG/0.4 ML SYR SQ SCH (09:26)
[2020-02-09] MEDS: PANTOprazole 40 MG in SYRINGE 0 ML IV SCH (10:45)
--- NOTE | 2020-02-09 15:43 | Surgery Progress Note ---
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 POD 1 doing fine, OOB continue iv antibiotic, repeta labs in am, will F/U prevent DVT 02/09/2020 3:42PM doing fine, not pass gas yet continue treatment will F/U Admission and Anticipated Discharge Date Admission Date: February 07, 2020 Review of Systems Constitutional: + anorexia; no fever and no chills Gastrointestinal: + abdominal pain and + nausea; no vomiting, no change in bowel habits, no change in stools, no constipation and no diarrhea/loose stools Physical Exam Constitutional: WD/WN, vitals as above well developed and well nourished Eyes: PERRL, conjunctivae normal, anicteric sclerae ENMT: external ear and nose normal, oropharynx normal Neck: trachea midline, no thyromegaly Respiratory: normal respiratory effort, lungs clear to auscultation Cardiovascular: RRR, no murmur, no edema Gastrointestinal (Abdomen): normal bowel sounds, soft, nontender, no hepatosplenomegaly Percussion/Palpation: abdomen soft incision intact, no redness, Bs - Musculoskeletal: no cyanosis or clubbing, extremities motor strength 5/5 Skin: no rashes, warm and dry Neurologic: patellar DTR's 2+ bilat, sensation intact Psychiatric: A+Ox3, euthymic affect Orientation: alert and oriented x 3 Results & Data ([facility]) Vital Signs (Past 12 Hours) Vital Signs Temp Pulse Resp BP Pulse Ox 02/09/20 15:14 37 C 88 18 106/68 96 02/09/20 10:51 103/68 02/09/20 07:46 37.1 C 79 16 95/62 L 96 Laboratory Results Abnormal lab results 02/09/20 02/09/20 Range/Units 06:29 06:29 RBC 3.34 L (4.2-5.4) M/uL Hgb 9.7 L D (12.0-16.0) g/dL Hct 28.8 L (37-47) % [place] # (Auto) 0.62 H (0.11-0.59) K/uL Chloride 108 H (98-107) mmol/L Carbon Dioxide 33 H (21-32) mmol/L Anion Gap -1.0 L (3-11) Calcium 8.1 L D (8.5-10.1) mg/dl AST 6 L (15-37) U/L Alkaline Phosphatase 27 L (45-117) U/L Total Protein 5.6 L D (6.4-8.2) gm/dl Albumin 2.8 L (3.4-5.0) gm/dl
[2020-02-09] MEDS: D5W AND 1/2NSS + 20MEQ KCL 20 MEQ/1,000 ML BAG IV SCH (16:47)
[2020-02-10] MEDS: KETOROLAC TROMETHAMINE 15 MG/ML VIAL IV PRN ×2 (01:50→16:30)
[2020-02-10] MEDS: D5W AND 1/2NSS + 20MEQ KCL 20 MEQ/1,000 ML BAG IV SCH ×3 (04:10→23:47)
[2020-02-10] MEDS: PIPERACILLIN/TAZOBACTAM 3.375 GM in DEXTROSE 5% 100 ML IV SCH ×3 (06:09→21:25)
[2020-02-10] MEDS: ENOXAPARIN INJ 40 MG/0.4 ML SYR SQ SCH (09:21)
[2020-02-10] MEDS: PANTOprazole 40 MG in SYRINGE 0 ML IV SCH (11:02)
--- NOTE | 2020-02-10 12:48 | Surgery Progress Note ---
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 POD 1 doing fine, OOB continue iv antibiotic, repeta labs in am, will F/U prevent DVT 02/09/2020 3:42PM doing fine, not pass gas yet continue treatment will F/U 02/10/2020 12:48Pm, doing fine, clear diet, will F/U Admission and Anticipated Discharge Date Admission Date: February 07, 2020 Physical Exam Constitutional: WD/WN, vitals as above well developed and well nourished Eyes: PERRL, conjunctivae normal, anicteric sclerae ENMT: external ear and nose normal, oropharynx normal Neck: trachea midline, no thyromegaly Respiratory: normal respiratory effort, lungs clear to auscultation Cardiovascular: RRR, no murmur, no edema Gastrointestinal (Abdomen): normal bowel sounds, soft, nontender, no hepatosplenomegaly Percussion/Palpation: abdomen soft Musculoskeletal: no cyanosis or clubbing, extremities motor strength 5/5 Skin: no rashes, warm and dry Neurologic: patellar DTR's 2+ bilat, sensation intact Psychiatric: A+Ox3, euthymic affect Orientation: alert and oriented x 3 Results & Data ([facility]) Vital Signs (Past 12 Hours) Vital Signs Temp Pulse Resp BP Pulse Ox 02/10/20 07:41 36.7 C 78 16 94/57 L 95
[2020-02-11] MEDS: PIPERACILLIN/TAZOBACTAM 3.375 GM in DEXTROSE 5% 100 ML IV SCH ×2 (05:53→13:52)
[2020-02-11] MEDS: PANTOprazole 40 MG in SYRINGE 0 ML IV SCH (10:46)
[2020-02-11] MEDS: D5W AND 1/2NSS + 20MEQ KCL 20 MEQ/1,000 ML BAG IV SCH (10:46)
[2020-02-11] MEDS: ENOXAPARIN INJ 40 MG/0.4 ML SYR SQ SCH (10:46)
[2020-02-11] MEDS: KETOROLAC TROMETHAMINE 15 MG/ML VIAL IV PRN (10:54)
[2020-02-11 15:30] VITALS: BP 101/65; PULSE 74; TEMP 98.6; O2SAT 99
--- NOTE | 2020-02-11 15:40 | Surgery Progress Note ---
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 POD 1 doing fine, OOB continue iv antibiotic, repeta labs in am, will F/U prevent DVT 02/09/2020 3:42PM doing fine, not pass gas yet continue treatment will F/U 02/10/2020 12:48Pm, doing fine, clear diet, will F/U 02/11/2020 3:39PM doing fine, discharge home today, the post-op care instruction was given, F/U 2 weeks, Admission and Anticipated Discharge Date Admission Date: February 07, 2020 Review of Systems Constitutional: + anorexia; no fever and no chills Gastrointestinal: + abdominal pain and + nausea; no vomiting, no change in bowel habits, no change in stools, no constipation and no diarrhea/loose stools Physical Exam Constitutional: WD/WN, vitals as above well developed and well nourished Eyes: PERRL, conjunctivae normal, anicteric sclerae ENMT: external ear and nose normal, oropharynx normal Neck: trachea midline, no thyromegaly Respiratory: normal respiratory effort, lungs clear to auscultation Cardiovascular: RRR, no murmur, no edema Gastrointestinal (Abdomen): normal bowel sounds, soft, nontender, no hepatosplenomegaly Percussion/Palpation: abdomen soft Musculoskeletal: no cyanosis or clubbing, extremities motor strength 5/5 Skin: no rashes, warm and dry Neurologic: patellar DTR's 2+ bilat, sensation intact Psychiatric: A+Ox3, euthymic affect Orientation: alert and oriented x 3 Results & Data ([facility]) Vital Signs (Past 12 Hours) Vital Signs Temp Pulse Resp BP Pulse Ox 02/11/20 15:29 37 C 74 16 101/65 99 02/11/20 07:27 36.8 C 78 16 104/67 96
--- NOTE | 2020-02-12 01:01 | Discharge Summary (DS) ---
ADMITTING DIAGNOSIS: Cecal volvulus. DISCHARGE DIAGNOSIS: Cecal volvulus. OPERATION: Cecectomy by Dean Infante MD. DETAILS OF DISCHARGE SUMMARY: This is a 39-year-old female who presented to ED with acute abdominal pain. The patient had CT scan diagnosis of cecal volvulus and Dr. Dean Infante took the patient to the OR, did a cecectomy. The patient tolerated the procedure well and the patient is doing fine. Today is postop day 4 and the patient passed gas, passed stool, tolerated diet. PHYSICAL EXAMINATION: VITAL SIGNS: Temperature is 37, respiratory rate 16, heart rate is 74, blood pressure 101/65, O2 saturation 99% on room air. GENERAL: The patient is alert, awake, oriented x3. HEENT: With normal limitation. NEUROLOGIC: Intact. NECK: No JVD. CHEST: Bilateral lung sounds clear. HEART: Normal S1, S2. No murmur. ABDOMEN: Soft, no tenderness. Incision intact. No redness on the incision site. Bowel sounds positive. EXTREMITIES: No edema. We decided to discharge the patient home today and gave the patient postop care instruction. The patient understands. The patient will follow up with Dr. Infante in 2 weeks.
== END 2020-02-11 17:02 | disposition home or self-care (01) | DRG 331 ==
LOC: ED 13:26 → ASU 17:06 → 3E 17:07
DX: K56.2 Volvulus